=== PATIENT | female | born 1970 | race Caucasian/White ===

== ENCOUNTER 2017-06-27 09:35 | Emergency (ER) | payer OTHER ==
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
[2017-06-27] MEDS ORDERED: IOPAMIDOL (ISOVUE 370) 100 ML BTL IV ONE (10:39)
[2017-06-27 13:15] VITALS: BP 130/79; PULSE 58; RESP 16; TEMP 98.4; O2SAT 99
== END 2017-06-27 13:15 | disposition home or self-care (01) ==
DX: S16.1XXA Strain of muscle, fascia and tendon at neck level, initial encounter (principal); V49.40XA Driver injured in collision with unspecified motor vehicles in traffic accident, initial encounter; Y92.410 Unspecified street and highway as the place of occurrence of the external cause; Y99.8 Other external cause status; Y93.89 Activity, other specified
CPT/HCPCS: 82947-QW; Q9967